=== PATIENT | female | born 1990 | race Caucasian/White ===

== ENCOUNTER 2016-10-08 21:50 | Emergency (ER) | payer BC ==
[~2016-10-08 21:50] MED LIST: CITA20TA19; ZOLP5TAB2
== END 2016-10-08 22:36 | disposition left against medical advice (07) ==
LOC: ER 21:54
DX: Z53.21 Procedure and treatment not carried out due to patient leaving prior to being seen by health care provider (principal)

== ENCOUNTER 2016-10-08 23:29 | Emergency (ER) | payer BC ==
[~2016-10-08] VITALS: Ht 160 cm; Wt 55.3 kg
[2016-10-08 23:37] VITALS: BP 119/74
[2016-10-08] MEDS: ALBUTEROL FS 2.5 MG/3 ML VIAL.NEB NEB ONE (23:58)
[2016-10-08] MEDS ORDERED: ALBUTEROL FS 2.5 MG/3 ML VIAL.NEB ONE (23:59)
== END 2016-10-09 00:53 | disposition home or self-care (01) ==
LOC: ER 23:32
DX: J06.9 Acute upper respiratory infection, unspecified (principal); F41.9 Anxiety disorder, unspecified
CPT/HCPCS: A4606; Z7610

== ENCOUNTER 2016-10-27 21:46 | Emergency (ER) | payer BC ==
[~2016-10-27] VITALS: Ht 160 cm; Wt 55.3 kg
[2016-10-27 22:39] VITALS: BP 108/74
== END 2016-10-28 01:00 | disposition home or self-care (01) ==
LOC: ER 21:48
DX: K21.9 Gastro-esophageal reflux disease without esophagitis (principal); R13.10 Dysphagia, unspecified
CPT/HCPCS: 70360; 99284; A4606; Z7610